=== PATIENT | female | born 1970 ===

== ENCOUNTER → 2019-12-29 | Outpatient (CLI) | payer BC ==
[~2019-12-29] MED LIST: AZUL500T; IBUP600T; SERT25TA2; VICO5TAB
--- NOTE | 2020-01-18 04:09 | ECWPNPC ---
PATIENT NAME: DINO ALCANTAR : 1970 GENDER: FEMALE VISIT DATE: 12/29/2019 DISCHARGE DATE: 12/29/19 1508 VISIT LOCKED DATE TIME: PHYSICIAN: MARY OCHOA RESOURCE: MARY OCHOA REASON FOR APPOINTMENT 1. BACK PAIN HISTORY OF PRESENT ILLNESS PAIN SCREENIN-YEAR-OLD FEMALE REFERRED BY [facility] FOR PERSISTENT LOW BACK PAIN AND LOWER EXTREMITY WEAKNESS. 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 REPORTS A FALL INJURY BEGINNING OF JUNE. REPORTS DIFFICULTY GOING FROM SITTING TO STANDING DUE TO LOWER EXTREMITY WEAKNESS AND LOW BACK PAIN SINCE FALL. HAS BEEN ON GABAPENTIN 600 MG AT NIGHTTIME FOR THE PAST MONTH WITHOUT MUCH IMPROVEMENT. REPORTS PAIN WORSE AT NIGHTTIME. PAIN IS AGGRAVATED MAINLY ON THE RIGHT SIDE WITH GETTING IN AND OUT OF VEHICLES AND GOING UP AND DOWN STAIRS. DENIES BOWEL OR BLADDER INCONTINENCE. NO RECENT FEVER OR ILLNESS. REPORTS POOR TOLERANCE TO PAIN MEDICATIONS DUE TO SIDE EFFECTS. 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 PATIENT HAS A COMPLAINT OF ACUTE OR CHRONIC PAIN :YES FALL RISK SCREENING: SCREENING :NO FALLS REPORTED IN THE LAST YEAR CURRENT MEDICATIONS TAKING TOUJEO SOLOSTAR 300 UNIT/ML SOLUTION PEN-INJECTOR 83 UNITS SUBCUTANEOUS BID TAKING METHOTREXATE 2.5 MG TABLET 1 TAB ORALLY WEEKLY ON FRIDAYS TAKING SERTRALINE HCL 50 MG TABLET 1 TABLET ORALLY ONCE A DAY TAKING MELOXICAM 15 MG TABLET 1 TABLET ORALLY ONCE A DAY TAKING DILTIAZEM HCL CR 180 MG/24HR CAPSULE EXTENDED RELEASE 24 HOUR 1 CAPSULE ORALLY ONCE A DAY TAKING METFORMIN HCL 500 MG TABLET 3 TABLETS ORALLY ONCE A DAY TAKING VITAMIN C 500 MG TABLET CHEWABLE 1 TABLET ORALLY ONCE A DAY TAKING ARTHUR 180 MG TABLET 1 TABLET NEEDED ORALLY ONCE A DAY TAKING FISH OIL OMEGA-3 1000 MG CAPSULE 1 CAPSULE ORALLY ONCE A DAY TAKING ONE DAILY - TABLET 1 TABLET ORALLY ONCE A DAY TAKING VITAMIN D3 50 MCG (1999 UT) CAPSULE 2 CAPSULES ORALLY ONCE A DAY TAKING GABAPENTIN 300 MG CAPSULE 2 CAPSULES ORALLY BEFORE BEDTIME TAKING LOSARTAN POTASSIUM 25 MG TABLET 1 TABLET ORALLY ONCE A DAY TAKING MONTELUKAST SODIUM 10 MG TABLET 1 TABLET ORALLY ONCE A DAY TAKING XELJANZ XR 11 MG TABLET EXTENDED RELEASE 24 HOUR 1 TABLET ORALLY ONCE A DAY MEDICATION LIST REVIEWED AND RECONCILED WITH THE PATIENT PAST MEDICAL HISTORY RA DIABETES TYPE II HYPERTENSION HAMMER TOES NEROUMA OF THE TOES BONE SPURS IN BACK SLEEP APNEA CERVICAL CANCER ASTHMA ALLERGIES METFORMIN HCL ER: DIARRHEA - ALLERGY GENERAL ANESTHESIA - IF USED IN HIGH DOSES: STAYS ASLEEP TOO LONG - SIDE EFFECTS ENBREL: HYPERGLYCEMIA - ALLERGY REMICADE: ANGIOEDEMA/HIVES - ALLERGY SURGICAL HISTORY BONE REMOVED - RIGHT THUMB 06/2019 HYSTERECTOMY 12/2008 TONSILLECTOMY 1973 GALLBLADDER REMOVED 06/1991 FAMILY HISTORY FATHER: ALIVE 74 YRS, DIAGNOSED WITH HYPERTENSION, DIABETES MOTHER: ALIVE 70 YRS, DIABETES, UNSPECIFIED HEART DISEASE 3 BROTHER(S) , 1 SISTER(S) . 2DAUGHTER(S) - HEALTHY. MOTHER - LUPUSSISTER - RA, "PIGEON TOES", POSSIBLE LUPUSOLDEST DAUGHTER - ECZEMAYOUNGEST DAUGHTER - ECZEMA. SOCIAL HISTORY GENERAL: TOBACCO USE ARE YOU A:NONSMOKER EDUCATION LEVEL OF EDUCATION:COLLEGE DIET: CARBOHYDRATE CONTROLLED. LANGUAGE LANGUAGES SPOKEN:MALAYSIAN RECREATIONAL DRUG USE DRUG USE?NO EXERCISE: NO REGULAR EXERCISE. LEARNING BARRIERS / SPECIAL NEEDS BARRIERS TO LEARNING?NO HEARING IMPAIRED?YES EARS CUT ON INSIDE WHEN TRYING TO GET WAX OUT WHEN YOUNG. VISION IMPAIRED?YES :CORRECTIVE LENSES COGNITIVELY IMPAIRED?NO READINESS TO LEARN?YES LEARNING PREFERENCES?NO LEARNING CAPABILITIES PRESENT?YES EMOTIONAL BARRIERS?NO SPECIAL DEVICES?NO DENTURES - UPPER REVENUE CYCLE MANAGER NEEDED?NO PAIN CLINIC PFS, CLERGY, PUBLIC HEALTH REFERRALS HAS THE PATIENT BEEN EDUCATED REGARDING HIS/HER PLAN OF CARE?YES HAS THE PATIENT BEEN EDUCATED REGARDING PAIN, THE RISK FOR PAIN, THE IMPORTANCE OF EFFECTIVE PAIN MANAGEMENT, AND THE PAIN ASSESSMENT PROCESS?YES LATEX QUESTIONNAIRE LATEX ALLERGY : HAVE YOU EVER DEVELOPED ANY TYPE OF REACTION AFTER HANDLING LATEX PRODUCTS SUCH RUBBER GLOVES, CONDOMS, DIAPHRAGMS, BALLOONS, SOCKS, OR UNDERWEAR?NO LATEX ALLERGY : HAVE YOU EVER DEVELOPED ANY TYPE OF REACTION DURING OR AFTER DENTAL APPOINTMENT, VAGINAL/RECTAL EXAMINATION, SURGICAL PROCEDURE, OR ANY OTHER EXPOSURE?NO LATEX RISK : HAVE YOU EVER HAD ANY DIFFICULTY BREATHING OR HIVES AFTER EATING OR HANDLING ANY FRUITS, OR VEGETABLES; SUCH KIWI, BANANAS, STONE FRUITS, OR CHESTNUTSNO LATEX RISK : DO YOU HAVE A PREVIOUS PERSONAL HISTORY OF MORE THAN NINE SURGERIES, SPINA BIFIDA, OR REPEATED CATHERIZATIONS? NO LATEX RISK : ARE YOU FREQUENTLY EXPOSED TO LATEX PRODUCTS IN YOUR OCCUPATION?YES DATE ASKED : 12/29/2019 CAFFEINE CAFFEINE USE?YES 1 CUP DAILY ADVANCE DIRECTIVE ADVANCE DIRECTIVE DISCUSSED WITH PATIENT:YES HCP - NATHALY BROWN () MARITAL STATUS: . ALCOHOL SCREENING DID YOU HAVE A DRINK CONTAINING ALCOHOL IN THE PAST YEAR?YES HOW OFTEN DID YOU HAVE A DRINK CONTAINING ALCOHOL IN THE PAST YEAR?TWO TO FOUR TIMES A MONTH (2 POINTS) HOW MANY DRINKS DID YOU HAVE ON A TYPICAL DAY WHEN YOU WERE DRINKING IN THE PAST YEAR?1 OR 2 (0 POINTS) HOW OFTEN DID YOU HAVE SIX OR MORE DRINKS ON ONE OCCASION IN THE PAST YEAR?NEVER (0 POINTS) POINTS2 INTERPRETATIONNEGATIVE OCCUPATION: CUSTOMER MARKETING ASSISTANT. REVIEWED WITH PATIENT 12/29/2019 1401 JS. HOSPITALIZATION/MAJOR DIAGNOSTIC PROCEDURE CHILD HEART PROBLEMS 01/2019 REVIEW OF SYSTEMS REVIEWED BY: PROVIDER: MARY TAPIA . CONSTITUTIONAL: ANY CHANGE IN YOUR MEDICAL CONDITION? YES, BONE SPURS IN MID-LOW BACK . CHILLS NO . FEVER NO . INFECTION: DO YOU HAVE NEW INFECTIONS? NO . DO YOU HAVE HISTORY OF MRSA? NO . MUSCULOSKELETAL: ANY NEW PATTERNS OF PAIN OR NUMBNESS? YES, STATES PAIN/NUMBNESS HAS IMPROVED SOME RECENTLY - HAS COMPLETED PHYSICAL THERAPY WITH LITTLE TO NO HELP . SYTEMIC LUPUS NO . GASTROENTEROLOGY: ANY NEW CHANGE IN BOWEL CONTROL? NO . BARRETTS ESOPHAGUS NO . CIRRHOSIS NO . HEPATITIS NO . LIVER FAILURE NO . ACID REFLUX NO . UNEXPLAINED WEIGHT LOSS NO . GENITOURINARY: ANY NEW CHANGE IN BLADDER CONTROL? NO . IS THERE A CHANCE YOU COULD BE ? NO . HEMATOLOGY/LYMPH: DO YOU TAKE ANY BLOOD THINNERS? (FOR EXAMPLE- COUMADIN, PLAVIX, AGGRENOX, PLATEL, PRADAXA, OR XARELTO) NO . WHEN WAS YOUR LAST DOSE? DATE: TIME: . LOW PLATELET COUNT NO . SICKLE CELL DISEASE NO . VON WILLIEBRANDS NO . FACTOR V LEIDEN NO . THALLASEMIA NO . ANEMIA NO . EASY BRUISING NO . NEUROLOGY: HAVE YOU FALLEN IN THE PAST 12 MONTHS? YES, STATES 2 FALLS SINCE JUNE 2019 - LEGS GAVE OUT CAUSING THE FALLS. STATES NO ED VISITS FOLLOWING EITHER FALL . ANY NEW EXTREMITY NUMBNESS OR WEAKNESS? NO . HEAD INJURY NO . DEMENTIA NO . CEREBRAL PALSY NO . MULTIPLE SCLEROSIS NO . DIZZINESS NO . HEADACHE NO . STROKES NO . VERTIGO NO . CARDIOLOGY: DO YOU HAVE A PACEMAKER OR DEFIBRILLATOR? NO . ANGINA NO . HEART ATTACK NO . HEART SURGERY NO . CONGESTIVE HEART FAILURE/FLUID OVERLOAD NO . CHEST PAIN NO . HIGH BLOOD PRESSURE ON MEDICATION(S) . IRREGULAR HEART BEAT NO . RESPIRATORY: HAVE YOU BEEN SICK IN THE PAST WEEK? NO . FEVER NO . FLU LIKE SYMPTOMS? NO . CPAP YES . BYPAP NO . ASTHMA YES . EMPHYSEMA NO . CHRONIC LUNG DISEASES NO . SHORTNESS OF BREATH ON EXERTION NO . COUGH NO . SNORING YES . INTEGUMENTARY: DO YOU HAVE ANY RASHES OR OPEN SORES? NO . ALLERGIC/IMMUNO: ARE YOU ALLERGIC TO IV DYE? NO . ANY NEW ALLERGIES? NO . PSYCHIATRIC: DO YOU HAVE THOUGHTS OF HURTING YOURSELF OR SOMEONE ELSE? NO . ARE YOU ABUSED, NEGLECTED, OR IN AN UNSAFE ENVIRONMENT? NO . ENDOCRINOLOGY: ARE YOU DIABETIC? YES . THYROID DISORDER NO . OTHER: DO YOU NEED ANY PRESCRIPTIONS? NO . IF YES, PLEASE LIST: ____ . ANY NEW PROBLEMS WITH YOUR MEDICATIONS? NO . WHEN DID YOU LAST EAT? ____ . WHEN DID YOU LAST DRINK? ____ . WHAT DID YOU LAST DRINK? ____ . NAME OF PERSON DRIVING YOU HOME? ____ . DO YOU HAVE ANY OTHER QUESTIONS OR CONCERNS NO . VITAL SIGNS WT 201.6 LBS, HT 53 IN, BMI 50.45 INDEX, BP 168/77 MM HG, HR 73 /MIN, RR 18 /MIN, TEMP 97.0 F, OXYGEN SAT % 96%, SAFE IN ENV? (Y/N) YES, NA INITIALS AW 1322, REVIEWED BY: BOGDAN. EXAMINATION GENERAL EXAMINATION: GENERAL ALERT,NO DISTRESS . PSYCH AFFECT NORMAL . LUNGS: LUNG SOUNDS ARE CLEAR . HEART: HEART RATE REGULAR . MUSCULOSKELETAL: MST 5/5 BILAT. LOWER EXTREMITIES . LUMBAR: TENDERNESS RIGHT SIJ .POSITIVE IVAN TESTING:RIGHT. DIAGNOSTIC TESTS REVIEWED CT L/S [id number] . ASSESSMENTS BILATERAL SACROILIITIS - M46.1 (PRIMARY) TREATMENT BILATERAL SACROILIITIS NOTES: BILAT. SIJ. OTHERS NOTES: SACROILIAC JOINT PAIN MATERIAL WAS PRINTED. PREVENTIVE MEDICINE PAIN CLINIC TEACHING: PROCEDURE TEACHING PRINTED AND REVIEWED INFORMATION ON SACROILIAC JOINT INJECTION PROCEDURE WITH PATIENT. ALSO REVIEWED PRE-PROCEDURE INSTRUCTIONS. PATIENT VERBALIZED AN UNDERSTANDING. JOHN LAI 12/29/2019 3:20:35 PM > . PROCEDURE CODES FA211 ESTABILISHED PATIENT [facility] FACILITY CHARGE DISPOSITION & COMMUNICATION FOLLOW UP POST (REASON: BILAT. SIJ) ELECTRONICALLY SIGNED BY REGINA FARIAS ON 01/17/2020 AT 10:21 AM EST DISCLAIMER : THIS IS A VISIT SUMMARY EXTRACTED FROM THE [employer] CHART. IT IS NOT A COPY OF THE [facility] PROGRESS NOTE. [facility]
== END ==
LOC: M PAIN 13:30
PROVIDERS: ATTEND Nurse Practitioner Family
DX: M46.1 Sacroiliitis, not elsewhere classified (principal); E11.9 Type 2 diabetes mellitus without complications; I10 Essential (primary) hypertension; G47.30 Sleep apnea, unspecified; J45.909 Unspecified asthma, uncomplicated; Z88.4 Allergy status to anesthetic agent; Z88.8 Allergy status to other drugs, medicaments and biological substances; E66.01 Morbid (severe) obesity due to excess calories; Z68.43 Body mass index [BMI] 50.0-59.9, adult; Z79.4 Long term (current) use of insulin; Z79.899 Other long term (current) drug therapy